=== PATIENT | female | born 1970 | race Caucasian/White ===

== ENCOUNTER 2020-05-10 14:45 | Outpatient (REF) | payer OTHER, SELFPAY | END 2020-05-10 14:46 | disposition home or self-care (01) | LOC: HO.LAB 14:45 | PROVIDERS: PCP Nurse Practitioner Family; Visit Provider Internal Medicine | DX: Z20.828 Contact with and (suspected) exposure to other viral communicable diseases (principal) | CPT/HCPCS: C9803; U0003 ==

== ENCOUNTER 2021-08-23 11:05 | Emergency (ER) | payer OTHER, SELFPAY ==
--- NOTE | ~2021-08-23 | CT_ITS ---
EXAMINATION: CT HEAD WITHOUT CONTRAST CLINICAL INFORMATION: Fall down stairs. Hit head. COMPARISON: None. TECHNIQUE: Contiguous axial imaging was performed from the skull base to vertex without intravenous contrast. This CT examination was performed using dose optimization techniques as appropriate, variously including the following: * Automated exposure control * Adjustment of mA and/or kV according to patient size (this includes techniques or standardized protocols for targeted exams where dose is matched to indication/reason for exam; i.e. extremities or head) Use of iterative reconstruction technique DLP: 793 mGy-cm. FINDINGS: There is no evidence of acute intracranial hemorrhage or territorial infarction. No abnormal mass effect or midline shift is seen. Villalobos to white matter differentiation is well preserved. No extra-axial fluid collections are identified. No hydrocephalus. No significant volume loss. There is no abnormal attenuation within the brain parenchyma. The osseous structures and soft tissues are normal. The mastoid air cells and visualized portions of the paranasal sinuses are well aerated. CT/CT head/brain wo con IMPRESSION: No acute intracranial pathology.
--- NOTE | ~2021-08-23 | XR_ITS ---
EXAMINATION: XR ANKLE, LEFT CLINICAL INFORMATION: Fall down stairs COMPARISON: None TECHNIQUE: AP, lateral, and mortise views of the left ankle. FINDINGS: No fracture or dislocation. The ankle mortise is congruent. No ankle joint effusion. Osteophytes along the ankle mortise. The soft tissues appear unremarkable. XR/XR ankle LT min 3V IMPRESSION: Mild degenerative changes along the ankle. No acute fracture or malalignment.
[2021-08-23 11:11] VITALS: BP 135/96; PULSE 106; RESP 16; TEMP 35.8; O2SAT 97; BMI 39.1
--- NOTE | 2021-08-23 11:29 | ED.FALL ---
HPI - Fall General Chief Complaint: Fall Stated Complaint: fell down stairs both legs inj Time Seen by Provider: 08/23/21 11:20 Source: patient Mode of arrival: ambulatory History of Present Illness HPI Narrative: 50-year-old female with a past medical history of depression presenting to the ED complaining of headache, right calf, and left ankle pain S/P falling down 8-9 stairs [employer]. Reports was carrying heavy chair when lost footing and tripped & fell down stairs, + hit head, denies LOC. Denies taking anticoagulation. Was ambulatory after incident. Denies back pain, urinary incontinence/retention, nausea/vomiting, vision change/loss, abdominal pain complaint: fall Onset (ago): minute(s) Fall from: standing Related Data Allergies Allergy/AdvReac Type Severity Reaction Status Date / Time No Known Allergies Allergy Unverified 03/02/20 15:14 Review of Systems Review of Systems: Constitutional: No Fever, No Chills,No Fatigue, No Malaise ENT/Mouth: No Ear Pain, No Nasal Congestion, No sore throat, No Rhinorrhea, No Swallowing Difficulty Eyes: No Eye Pain, No Swelling, No Redness, No Vision Changes Cardiovascular: No Chest Pain, No SOB, No Palpitations Respiratory: No Cough, No Sputum, No Dyspnea Gastrointestinal: No Nausea, No Vomiting, No Diarrhea, No Constipation, No Abdominal pain Genitourinary: No Dysuria, No Urinary Frequency, No Hematuria, No Urinary Incontinence/retention, No Urgency, No Flank Pain Musculoskeletal: + joint pain, No Myalgias, No Joint Swelling Skin: N+o Skin Lesions, No rash Neuro: No Weakness, No Numbness, No Paresthesias, No Loss of Consciousness, No Dizziness, + Headache Yes all other systems are reviewed and are negative Neurologic: Denies Abnormal speech present [facility] Past Medical History Attestation statement: The following information was validated with the patient. Medical History Depression Social History Social History Advance Directives: No Advance Directives Information Provided: No Patient : No Physical Exam Vital Signs: Vital Signs: Last Vital Signs Temp 96.5 F L 08/23/21 11:11 Pulse 106 H 08/23/21 11:11 Resp 16 08/23/21 11:11 BP 135/96 H 08/23/21 11:11 Pulse Ox 97 08/23/21 11:11 BMI result Body Mass Index 39.1 Const: Other: tearful General: cooperative, healthy appearing, no acute distress, alert, awake and anxious Orientation/consciousness: patient oriented x3 Limitations: no limitations HENMT: Head: Yes normal to inspection, Yes atraumatic, No Nunez's sign and No raccoon eyes Ears: hearing grossly normal bilaterally General nose exam: Normal external nose present Face and sinus: Yes normal facial exam Throat: Yes posterior oropharynx normal and Yes uvula midline Eyes: General: appearance normal, both eyes and all related structures Pupils: Equal, round and reactive pupils present EOM: EOMs intact bilaterally Neck: Other: No midline cervical spinous tenderness/Doppler for deformity. Right-sided paraspinal/trapezius muscle tenderness to palpation Neck: Yes normal visual inspection, Yes no lymphadenopathy, Yes no meningeal signs and No anterior neck swelling Resp: Effort & Inspection: normal respiratory effort and no respiratory distress Cardio: Rate: regular rate Peripheral pulses: radial pulses present and dorsalis pedis present GI: Inspection: Yes normal to inspection Palpation (GI): Soft to palpation, nontender, no guarding and not rigid : General: Yes no CVA tenderness Back/Spine/Pelvis: Other: No midline thoracic/lumbar spinous tenderness Back: no CVA tenderness Skin: Rashes: no rashes Wounds: no wounds Neuro: General: patient oriented x3, gait normal, tone normal, moves all extremities, no meningeal signs, no focal motor deficits and CN's II-XI intact bilaterally Cranial nerves: Yes CN's II-XII intact bilaterally and Yes Equal, round and reactive pupils present Cognition (Neuro): normal cognition Speech: No Abnormal speech present Gait exam (Neuro): Normal gait present Motor exam (neuro): 5/5 motor strength present throughout Extrem: Other: Mild tenderness to palpation to right calf. No deformity, no ecchymosis/erythema. Compartments soft. Neurovascular intact distally + superficial abrasion to left tib-fib. Left ankle with mild swelling and tenderness. No deformity. NV intact distally. Left foot/knee nontender Course Course Course Narrative: CT head/brain wo con IMPRESSION: No acute intracranial pathology. R ankle LT min 3V IMPRESSION: Mild degenerative changes along the ankle. No acute fracture or malalignment. MDM - Fall MDM Narrative Medical decision making narrative: 50-year-old female with a past medical history of depression presenting to the ED complaining of headache, right calf, and left ankle pain S/P falling down 8-9 stairs [employer]. On exam tachycardic, anxious, tearful, physical exam as above, no midline spinous tenderness doctor, no focal neuro deficits. Likely MSK pain/strains. No evidence of compartment syndrome of right calf. Low concern for ICH Will obtain head CT & ankle x-ray ICH/fractures. Differential Diagnosis Differential diagnosis: Likely fracture and concussion without loss of consciousness Medical Records Attestation: I reviewed the patient's medical records. Lab Data Attestation: I reviewed the patient's lab results. Discharge Plan Discharge Clinical Impression: Head injury, Acute ankle pain, Fall Patient Disposition: Home, Self-Care Instructions: Arthralgia (ED), Head Injury (ED) Additional Instructions: Your ankle x-ray showed mild degenerative changes, no fracture. Her head CT was unremarkable. Please take Tylenol /Motrin at home for pain and aches. Ice painful areas. Rest. Please follow-up with her doctor If symptoms persist or worsen, pain becomes unbearable, you have nausea/vomiting or weakness patient in to the ED Referrals: Symone Romero NP [Primary Care Provider] - 2 days
== END 2021-08-23 12:26 | disposition home or self-care (01) ==
PROVIDERS: Emergency Provider Emergency Medicine; PCP Nurse Practitioner Family
DX: S09.90XA Unspecified injury of head, initial encounter (principal); M25.572 Pain in left ankle and joints of left foot; W10.9XXA Fall (on) (from) unspecified stairs and steps, initial encounter; Y93.9 Activity, unspecified; Y92.9 Unspecified place or not applicable; Y99.9 Unspecified external cause status
CPT/HCPCS: 70450; 73610; 99283; 99284

== ENCOUNTER 2021-10-03 03:08 | Emergency (ER) | payer OTHER, SELFPAY ==
--- NOTE | ~2021-10-03 | XR_ITS ---
EXAMINATION: XR SHOULDER, RIGHT CLINICAL INFORMATION: Pain COMPARISON: None TECHNIQUE: Three views of the right shoulder. FINDINGS: No fracture or dislocation. The glenohumeral joint is well aligned. The acromioclavicular joint is intact with mild degenerative change. The visualized lung is clear. The visualized ribs are intact. XR/XR shoulder RT min 2V IMPRESSION: Mild hypertrophic degenerative change of the acromioclavicular joint. Otherwise unremarkable study.
[2021-10-03 03:17] VITALS: BP 128/86; PULSE 68; RESP 18; TEMP 37; O2SAT 99; BMI 40.3
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
[2021-10-03] MEDS: Ketorolac Tromethamine 15 MG/ML VIAL IM (04:19)
[2021-10-03] MEDS: Lidocaine 4 % Patch ADH..PATCH 1 PATCH TRANSDERMA (04:22)
[2021-10-03] MEDS: Acetaminophen 325 MG TABLET 975 MG PO (04:23)
[2021-10-03 05:44] VITALS: RESP 18; O2SAT 99
== END 2021-10-03 05:44 | disposition home or self-care (01) ==
PROVIDERS: Emergency Provider Student in an Organized Health Care Education/Training Program
DX: M25.511 Pain in right shoulder (principal)
CPT/HCPCS: 73030; 96372; 99284; J1885

== ENCOUNTER → 2021-10-24 10:33 | Outpatient (BNVA) | payer OTHER, SELFPAY | PROVIDERS: PCP Internal Medicine; Visit Provider Physician Assistant | DX: Z13.89 Encounter for screening for other disorder (principal) ==

== ENCOUNTER 2021-11-28 16:00 | Outpatient (RCR) | payer OTHER, SELFPAY | END 2021-12-18 12:20 | disposition home or self-care (01) | LOC: HO.PT 16:00 | PROVIDERS: PCP Nurse Practitioner Family; Visit Provider Physician Assistant | DX: M75.81 Other shoulder lesions, right shoulder (principal); S16.1XXD Strain of muscle, fascia and tendon at neck level, subsequent encounter | CPT/HCPCS: 97110; 97112; 97161 ==

== ENCOUNTER → 2021-12-05 12:56 | Outpatient (BNVA) | payer OTHER, SELFPAY | PROVIDERS: PCP Nurse Practitioner Family; Visit Provider Physician Assistant | DX: M75.81 Other shoulder lesions, right shoulder (principal); M75.110 Incomplete rotator cuff tear or rupture of unspecified shoulder, not specified as traumatic | CPT/HCPCS: 20610; 99212; J1040 ==

== ENCOUNTER → 2022-01-17 13:36 | Outpatient (BNVA) | payer OTHER, SELFPAY | PROVIDERS: PCP Nurse Practitioner Family; Visit Provider Orthopaedic Surgery | DX: M75.110 Incomplete rotator cuff tear or rupture of unspecified shoulder, not specified as traumatic (principal) | CPT/HCPCS: 99212 ==

== ENCOUNTER 2022-02-16 08:35 | Emergency (ER) | payer OTHER, SELFPAY ==
[2022-02-16 08:40] VITALS: BP 148/80; PULSE 77; RESP 20; TEMP 36.9; O2SAT 99; BMI 40.3
--- NOTE | 2022-02-16 11:51 | ED_ITS ---
HPI - Skin/Abscess/Foreign Bdy General Chief complaint: Wound/Laceration Stated complaint: Infected Finger R Hand Time Seen by Provider: 02/16/22 11:26 Source: patient Mode of arrival: ambulatory Limitations: no limitations History of Present Illness HPI narrative: Patient presents emergency department for evaluation of concern for infection to the right 2nd digit. She reports a few days ago there was a hangnail that she tried to pull off. Yesterday she noticed a small white pocket of fluid the palmar tip of the digit, she had a sterile needle from her estradiol injections that she used to stick in to the lateral side of the finger and states a very small amount of pus and blood was removed. Today she has now noticed redness extending down her finger, swelling, and pain. Denies fevers or chills. Denies any significant past medical history such as diabetes or MRSA. Related Data Home Medications Medication Instructions Recorded Confirmed bupropion HCl 300 mg 24 hr tablet, 300 mg PO QAM 10/24/21 extended release (Wellbutrin XL) estradiol valerate 20 mg/mL mg IM 10/24/21 intramuscular oil spironolactone 50 mg tablet 50 mg PO BID 10/24/21 Previous Rx's Medication Instructions Recorded cyclobenzaprine 10 mg tablet 10 mg PO Q8H PRN Muscle spasm #14 10/03/21 tabs naproxen 500 mg tablet 500 mg PO BID 30 days #60 tabs 10/24/21 cephalexin 500 mg capsule 500 mg PO QID 7 days #28 caps 02/16/22 doxycycline hyclate 100 mg capsule 100 mg PO BID 7 days #14 caps 02/16/22 Allergies Allergy/AdvReac Type Severity Reaction Status Date / Time No Known Allergies Allergy Verified 01/17/22 13:41 Review of Systems Review of Systems: Constitutional: No fever, chills, weakness or fatigue. Skin: No rash or itching. Positive redness to right 2nd digit Cardiovascular: No chest pain, chest pressure or chest discomfort. No palpitations Respiratory: No shortness of breath, cough or sputum production. Gastrointestinal: No nausea, vomiting or diarrhea. No abdominal pain Genitourinary: No burning micturition. No urinary frequency or incontinence. Musculoskeletal: No muscle pain, back pain, joint pain or stiffness. Psychiatric: No depression or anxiety. [facility] Past Medical History Attestation statement: The following information was validated with the patient. 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 No acute distress.?Normal affect. Eyes: Pupils equal, round and reactive to light.? ENT: Pharynx normal.?? Neck: Normal inspection.? Neck supple.?? CVS: Heart sounds normal. Normal heart rate and rhythm.? Pulses normal.?? Respiratory: No respiratory distress.? Lung sounds clear to auscultation bilaterally?? Abdomen: Soft and non-tender. Normoactive bowel sounds. No pulsatile mass.?? Skin: Skin warm and dry.? Normal skin color.? Normal skin turgor.?? Extremities: No lower extremity edema.? Right 2nd digit circumferential erythema and swelling, able to and extend the digit, no tenderness upon palpation of the flexor tendon, Neuro: Moves all extremities spontaneously. Sensation intact bilaterally. CN II- XII intact. No focal neuro deficits. Ambulates with normal steady gait. Course Course Course Narrative: Patient is a 51-year-old female who presents emergency department for evaluation of concern for infection to the right index finger. Physical exam not consistent with abscess, paronychia, tenosynovitis, felon. Obtain basic labs and patient to receive dose of IV Zosyn while in the emergency department. Discussed plan of care for discharge home after with Keflex and doxycycline and strict return precautions, worsening signs and symptoms, outpatient follow-up with primary care provider. MDM - Skin/Abscess/Foreign Bdy Lab Data Result diagrams: 02/16/22 12:22 02/16/22 12:22 Labs: Lab Results 02/16/22 02/16/22 Range/Units 12:22 12:22 WBC 9.4 (4.8-10.8) X10*3/uL RBC 4.67 (4.20-5.50) X10*6/uL Hgb 13.7 (12.0-16.0) g/dl Hct 40.9 (37.0-47.0) % MCV 87.6 (80.0-98.0) fL MCH 29.3 (27.0-33.0) pg MCHC 33.5 (31.0-35.0) g/dl RDW 12.3 (11.0-16.0) % Plt Count 297 (160-400) X10*3/uL MPV 8.0 L (9.4-12.3) fL Immature Gran % (Auto) 0.2 (0.0-0.4) % Neut % (Auto) 64.6 (45-73) % Lymph % (Auto) 25.1 (20-40) % Sully % (Auto) 8.1 (2-11) % Eos % (Auto) 1.5 (0-4) % Baso % (Auto) 0.5 (0-2) % Lymph # (Auto) 2.4 (1.2-4.9) X10*3/uL Sully # (Auto) 0.8 (0.1-1.2) X10*3/uL Eos # (Auto) 0.1 (0.0-0.4) X10*3/uL Baso # (Auto) 0.1 (0.0-0.2) X10*3/uL Abs Immat Gran (auto) 0.02 (0.00-0.03) X10*3/uL Absolute Neuts (auto) 6.1 (2.0-8.3) x10*3/uL Absolute Nucleated RBC 0.000 (0.0-0.012) X10*3/uL Nucleated RBC % (auto) 0.0 (0.0-0.2) /100WBC Sodium 141 (135-145) mmol/L Potassium 3.5 (3.3-5.1) mmol/L Chloride 107 (96-108) mmol/L Carbon Dioxide 23 (22-29) mmol/L Anion Gap 15 (12-20) BUN 13 (9-16) mg/dL Creatinine 0.95 (0.5-1.4) mg/dL Estim Creat Clear Calc 90.4 Estimated GFR > 60 Random Glucose 123 H (60-115) mg/dL Calcium 9.4 (8.4-10.2) mg/dL Total Bilirubin 0.4 (0.0-1.0) mg/dL AST 19 (5-31) U/L ALT 18 (0-31) U/L Alkaline Phosphatase 92 (39-117) U/L Total Protein 7.1 (6.5-8.0) g/dL Albumin 4.3 (3.5-5.0) g/dL Discharge Plan Discharge Clinical Impression: Cellulitis of finger of right hand Patient Disposition: Home, Self-Care Instructions: Cellulitis (ED) Additional Instructions: Your been given a prescription for 2 antibiotics to take at home, please complete this entire course. If you develop fevers, chills, notice worsening pain, swelling, extension of the redness further down your finger patient come back to the emergency department f or re-evaluation. Please contact your primary care provider and arrange for a follow-up visit within 3 days. Prescriptions: New cephalexin 500 mg capsule 500 mg PO QID 7 Days Qty: 28 0RF doxycycline hyclate 100 mg capsule 100 mg PO BID 7 Days Qty: 14 0RF No Action cyclobenzaprine 10 mg tablet 10 mg PO Q8H PRN (Reason: Muscle spasm) Qty: 14 0RF spironolactone 50 mg tablet 50 mg PO BID estradiol valerate 20 mg/mL oil IM bupropion HCl [Wellbutrin XL] 300 mg tablet extended release 24 hr 300 mg PO QAM naproxen 500 mg tablet 500 mg PO BID 30 Days Qty: 60 3RF Referrals: Symone Romero NP [Primary Care Provider] - 3 days Interventions: ED Discharge Assessment Last Done: 02/16/22 13:47 Discharge Date/Time: 02/16/22 13:48
[2022-02-16] MEDS: Piperacillin Sodium/Tazobactam 3.375 GM in 0.9 % Sodium Chloride 50 ML IV (12:20)
--- NOTE | 2022-02-16 12:21 | PC.NURSE ---
cultures drawn prior to admin of abx shouldcultures be needed pending cmp
[2022-02-16 12:26] LABS: MANUAL DIFF FLAG NO
[2022-02-16 12:28] LABS: Basophils Absolute Auto 0.1 X10*3/uL (0.0-0.2); Basophils Percent Auto 0.5 % (0-2); Eosinophils Absolute Auto 0.1 X10*3/uL (0.0-0.4); Eosinophils Percent Auto 1.5 % (0-4); Hematocrit 40.9 % (37.0-47.0); Hemoglobin 13.7 g/dl (12.0-16.0); Imm Gran Abs Auto 0.02 X10*3/uL (0.00-0.03); Imm Gran Pct Auto 0.2 % (0.0-0.4); Lymphocytes Absolute Auto 2.4 X10*3/uL (1.2-4.9); Lymphocytes Percent Auto 25.1 % (20-40); Mean Corpuscular HGB Conc 33.5 g/dl (31.0-35.0); Mean Corpuscular Hemoglobin 29.3 pg (27.0-33.0); Mean Corpuscular Volume 87.6 fL (80.0-98.0); Monocytes Absolute Auto 0.8 X10*3/uL (0.1-1.2); Monocytes Percent Auto 8.1 % (2-11); Neutrophils Absolute Auto 6.1 x10*3/uL (2.0-8.3); Neutrophils Percent Auto 64.6 % (45-73); Platelet Count 297 X10*3/uL (160-400); Red Blood Count 4.67 X10*6/uL (4.20-5.50); Red Cell Distribution Width 12.3 % (11.0-16.0); White Blood Count 9.4 X10*3/uL (4.8-10.8)
[2022-02-16 12:45] LABS: Alanine Aminotransferase 18 U/L (0-31); Albumin Level 4.3 g/dL (3.5-5.0); Alkaline Phosphatase 92 U/L (39-117); Anion Gap 15 (12-20); Aspartate Amino Transferase 19 U/L (5-31); Bilirubin Total 0.4 mg/dL (0.0-1.0); Blood Urea Nitrogen 13 mg/dL (9-16); Calcium 9.4 mg/dL (8.4-10.2); Carbon Dioxide 23 mmol/L (22-29); Chloride 107 mmol/L (96-108); Creatinine Clr Calc Pharmacy 90.4; Estimated Glomerular Filt Rate > 60; Glucose Random 123 mg/dL (60-115); Potassium 3.5 mmol/L (3.3-5.1); Sodium 141 mmol/L (135-145); Total Protein 7.1 g/dL (6.5-8.0)
== END 2022-02-16 13:48 | disposition home or self-care (01) ==
PROVIDERS: Nurse Practitioner Family; Emergency Provider Emergency Medicine; PCP Nurse Practitioner Family
DX: L03.011 Cellulitis of right finger (principal); Z79.899 Other long term (current) drug therapy
CPT/HCPCS: 36415; 80053; 85025; 96365; 99283; 99284; J2543

== ENCOUNTER 2022-03-11 06:34 | Emergency (ER) | payer OTHER, SELFPAY | END 2022-03-11 08:49 | disposition left against medical advice (07) | PROVIDERS: Emergency Provider Emergency Medicine | DX: R10.9 Unspecified abdominal pain (principal) ==